=== PATIENT | male | born 1950 | race Caucasian/White ===

== ENCOUNTER 2023-10-05 15:58 | Outpatient (CLI) | payer MEDICARE, SELFPAY ==
[2023-10-05 16:38] LABS: Basophils % 0.8 % (0.1-2.0); Eosinophils # 0.1 K/mm3 (0.0-0.4); Eosinophils % 1.6 % (0.1-12.0); Hematocrit 41.6 % (42.0-52.0); Hemoglobin 13.7 g/dL (14.1-18.0); Lymphocytes # 1.9 K/mm3 (0.7-4.5); Lymphocytes % 36.9 % (10-50); Mean Corpuscular HGB Conc 32.9 g/dL (31.8-35.4); Mean Corpuscular Hemoglobin 30.7 pg (27.0-31.2); Mean Corpuscular Volume 93.4 fl (80-94); Monocytes # 0.5 K/mm3 (0.1-1.0); Monocytes % 9.1 % (1.7-9.3); Neutrophils # 2.7 K/mm3 (1.8-7.8); Neutrophils % 51.6 % (37.0-80.0); Platelet Count 204 K/mm3 (142-424); Red Blood Count 4.46 M/mm3 (4.60-6.20); Red Cell Distribution Width 13.8 % (11.5-17.5); White Blood Count 5.2 K/mm3 (4.8-10.8)
[2023-10-05 17:35] LABS: Alanine Aminotransferase 26 U/L (12-78); Alkaline Phosphatase 56 U/L (38-126); Anion Gap 10.4 mEq/L (5-15); Aspartate Amino Transferase 36 U/L (17-59); Bilirubin,Indirect 0.6 mg/dL (0.0-0.9); Bilirubin,Total 0.6 mg/dl (0.2-1.3); Bilirubin,Unconjugated 0.6 mg/dL (0.0-1.1); Blood Urea Nitrogen 21 mg/dl (9-20); Calcium 9.3 mg/dl (8.4-10.2); Carbon Dioxide 28 mmol/L (22.0-30.0); Chloride 102 mmol/L (98-107); Chol/HDL Ratio 3.3 (1-3.5); Cholesterol 135 mg/dl (140-200); Estimated Glomerular Filt Rate 74 ml/min (>60); GFR (African American) 89 ML/MIN (>60); Glucose 93 mg/dl (74-100); HDL Cholesterol 41 mg/dl (40-60); Magnesium 1.8 mg/dl (1.6-2.3); Potassium 4.4 mmoL/L (3.5-5.1); Sodium 136 mmol/L (136-145); Total Protein,Serum 6.7 g/dl (6.3-8.2); Triglycerides 91 mg/dl (30-150); VLDL Cholesterol 18 mg/dL (0-40)
[2023-10-05 17:48] LABS: Direct LDL Cholesterol 66.21 mg/dL (100-129)
[2023-10-05 17:51] LABS: Free T4 (Free Thyroxine) 1.01 ng/dl (0.78-2.19)
[2023-10-05 18:05] LABS: Thyroid Stimulating Hormone 1.17 uIU/mL (0.465-4.68)
== END 2023-10-05 23:59 | disposition home or self-care (01) ==
PROVIDERS: Internal Medicine; PCP Physician Assistant; Visit Provider Internal Medicine
DX: R00.1 Bradycardia, unspecified (principal); I73.9 Peripheral vascular disease, unspecified; I10 Essential (primary) hypertension; I70.1 Atherosclerosis of renal artery
CPT/HCPCS: 36415; 80048; 80061; 80076; 83735; 84439; 84443; 85025

== ENCOUNTER 2023-11-08 07:45 | Outpatient (CLI) | payer MEDICARE, SELFPAY ==
--- OUTSIDE RECORDS SUMMARY | 2023-11-08 07:47 | XMS_ITS | Continuity of Care Document ---
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 Role Phone Provider, Unlisted Primary Care Physician Kj lazo Encounter [facility] [id number] Date(s): 12/09/22 - 12/09/[address] [id number] Encounter Diagnosis Cough(Discharge Diagnosis) - 12/09/22 Sinusitis(Discharge Diagnosis) - 12/09/22 Elevated blood pressure reading(Discharge Diagnosis) - 12/09/22 Discharge Disposition: Home Attending Physician: SABINE MEDELLIN Admitting Physician: SABINE MEDELLIN Allergies, Adverse Reactions, Alerts No Known Medication Allergies Functional Status 12/09/22 History of Fall in Last 3 Months [place] o Medications Acidophilus Extra Strength oral capsule 1 cap(s), PO, Daily, # 14 cap(s), 0 Refill(s), Pharmacy: [id number], 1 cap(s) PO Daily Start Date: 12/09/22 Status: Ordered doxycycline hyclate 100 mg oral capsule ( 100 mg ), PO, BID, x 7 day(s), Instructions: Take with food, may make you sensitive to the sun, #14 cap(s), 0 Refill(s), 12/16/22 2:25:00 PM CDT, Pharmacy: [id number], 100 mg PO BID,x7 day(s),Instr:Take with food, may make you sensitive to the sun Start Date: 12/09/22 Stop Date: 12/16/22 Status: Ordered losartan 100 mg oral tablet Instructions: TAKE 1 TABLET BY MOUTH EVERY DAY Start Date: 12/09/22 Status: Ordered Tessalon Perles 100 mg oral capsule 2 cap(s) ( 200 mg ), PO, TID, PRN: as needed for cough, # 18 cap(s), 0 Refill(s), 12/10/22 11:00:00PM CDT, Pharmacy: [id number], 2 cap(s) PO TID,PRN:as needed for cough Start Date: 12/09/22 Stop Date: 12/11/22 Status: Ordered Ventolin HFA 90 mcg/inh inhalation aerosol 1 puff(s), INH, q6hr, PRN: for wheezing, # 18 gm, 0 Refill(s), Pharmacy: [id number], 1 puff(s) INH q6hr,PRN:for wheezing Start Date: 12/09/22 Status: Ordered Vital Signs Most recent to oldest [Reference Range]: 1 Height 187.96 cm (12/09/22 3:12 PM) Weight 94.98 kg (12/09/22 3:12 PM) Body Mass Index Measured 26.88 kg/m2 (12/09/22 3:12 PM) BSA Measured 2.23 m2 (12/09/22 3:12 PM) Temperature Tympanic [36.6-38.1 DegC] 36 .6 DegC (12/09/22 3:12 PM) Peripheral Pulse Rate [60-100 bpm] 47 bp m *LOW* (12/09/22 3:12 PM) Respiratory Rate [14-20 br/min] 16 br/mi n (12/09/22 3:12 PM) Blood Pressure [90-140/60-90 mmHg] 154/9 0mmHg *HI* (12/09/22 3:12 PM) SpO2 [92-100 %] 93 % (12/09/22 3:12 PM) Oxygen Therapy Room air (12/09/22 3:12 PM) BP Method Manual (12/09/22 3:12 PM) Social History Social History Type Response Tobacco Never tobacco user T obacco Use:. Sex Hospital Discharge Instructions Patient Education 12/09/2022 14:31:48 Hypertension, Adult Hypertension, Adult High blood pressure (hypertension) is when the force of blood pumping through the arteries is too strong. The arteries are the blood vessels that carry blood from the heart throughout the body. Hypertension forces the heart to work harder to pump blood and may cause arteries to become narrow or stiff. Untreated or uncontrolled hypertension can lead to a heart attack, heart failure, a stroke, kidney disease, and other problems. A blood pressure reading consists of a higher number over a lower number. Ideally, your blood pressure should be below 120/80. The first ( top ) number is called the systolic pressure. It is a measure of the pressure in your arteries as your heart beats. The second ( bottom ) number is called the diastolic pressure. It is a measure of the pressure in your arteries as the heart relaxes. What are the causes? The exact cause of this condition is not known. There are some conditions that result in high bloodpressure. What increases the risk? Certain factors may make you more likely to develop high blood pressure. Some of these risk factorsare under your control, including: ??? Smoking. ??? Not getting enough exercise or physical activity. ??? Being overweight. ??? Having too much fat, sugar, calories, or salt (sodium) in your diet. ??? Drinking too much alcohol. Other risk factors include: ??? Having a personal history of heart disease, diabetes, high cholesterol, or kidney disease. ??? Stress. ??? Having a family history of high blood pressure and high cholesterol. ??? Having obstructive sleep apnea. ??? Age. The risk increases with age. What are the signs or symptoms? High blood pressure may not cause symptoms. Very high blood pressure (hypertensive crisis) may cause: ??? Headache. ??? Fast or irregular heartbeats (palpitations). ??? Shortness of breath. ??? Nosebleed. ??? Nausea and vomiting. ??? Vision changes. ??? Severe chest pain, dizziness, and seizures. How is this diagnosed? This condition is diagnosed by measuring your blood pressure while you are seated, with your arm resting on a flat surface, your legs uncrossed, and your feet flat on the floor. The cuff of the bloodpressure monitor will be placed directly against the skin of your upper arm at the level of your heart. Blood pressure should be measured at least twice using the same arm. Certain conditions can cause a difference in blood pressure between your right and left arms. If you have a high blood pressure reading during one visit or you have normal blood pressure with other risk factors, you may be asked to: ??? Return on a different day to have your blood pressure checked again. ??? Monitor your blood pressure at home for 1 week or longer. If you are diagnosed with hypertension, you may have other blood or imaging tests to help your health care provider understand your overall risk for other conditions. How is this treated? This condition is treated by making healthy lifestyle changes, such as eating healthy foods, exercising more, and reducing your alcohol intake. You may be referred for counseling on a healthy diet and physical activity. Your health care provider may prescribe medicine if lifestyle changes are not enough to get your blood pressure under control and if: ??? Your systolic blood pressure is above 130. ??? Your diastolic blood pressure is above 80. Your personal target blood pressure may vary depending on your medical conditions, your age, and other factors. Follow these instructions at home: Eating and drinking ??? Eat a diet that is high in fiber and potassium, and low in sodium, added sugar, and fat. An example of this eating plan is called the DASH diet. DASH stands for Dietary Approaches to Stop Hypertension. To eat this way: ??? Eat plenty of fresh fruits and vegetables. Try to fill one half of your plate at each meal withfruits and vegetables. ??? Eat whole grains, such as whole-wheat pasta, brown rice, or whole-grain bread. Fill about one fourth of your plate with whole grains. ??? Eat or drink low-fat dairy products, such as skim milk or low-fat yogurt. ??? Avoid fatty cuts of meat, processed or cured meats, and poultry with skin. Fill about one fourth of your plate with lean proteins, such as fish, chicken without skin, beans, eggs, or tofu. ??? Avoid pre-made and processed foods. These tend to be higher in sodium, added sugar, and fat. ??? Reduce your daily sodium intake. Many people with hypertension should eat less than 1,500 mg ofsodium a day. ??? Do not drink alcohol if: ??? Your health care provider tells you not to drink. ??? You are , may be , or are planning to become . ??? If you drink alcohol: ??? Limit how much you have to: ??? 0???1 drink a day for women. ??? 0???2 drinks a day for men. ??? Know how much alcohol is in your drink. In the [place] one drink equals one 12 oz bottle of beer (355 mL), one 5 oz glass of wine (148 mL), or one 1?? oz glass of hard liquor (44 mL). Lifestyle ??? Work with your health care provider to maintain a healthy body weight or to lose weight. Ask what an ideal weight is for you. ??? Get at least 30 minutes of exercise that causes your heart to beat faster (aerobic exercise) most days of the week. Activities may include walking, swimming, or biking. ??? Include exercise to strengthen your muscles (resistance exercise), such as Pilates or lifting weights, as part of your weekly exercise routine. Try to do these types of exercises for 30 minutes at least 3 days a week. ??? Do not use any products that contain nicotine or tobacco. These products include cigarettes, chewing tobacco, and vaping devices, such as e-cigarettes. If you need help quitting, ask your health care provider. ??? Monitor your blood pressure at home as told by your health care provider. ??? Keep all follow-up visits. This is important. Medicines ??? Take hjww-hfc-xysipra and prescription medicines only as told by your health care provider. Follow directions carefully. Blood pressure medicines must be taken as prescribed. ??? Do not skip doses of blood pressure medicine. Doing this puts you at risk for problems and can make the medicine less effective. ??? Ask your health care provider about side effects or reactions to medicines that you should watch for. Contact a health care provider if you: ??? Think you are having a reaction to a medicine you are taking. ??? Have headaches that keep coming back (recurring). ??? Feel dizzy. ??? Have swelling in your ankles. ??? Have trouble with your vision. Get help right away if you: ??? Develop a severe headache or confusion. ??? Have unusual weakness or numbness. ??? Feel faint. ??? Have severe pain in your chest or abdomen. ??? Vomit repeatedly. ??? Have trouble breathing. These symptoms may be an emergency. Get help right away. Call 911. ??? Do not wait to see if the symptoms will go away. ??? Do not drive yourself to the hospital. Summary ??? Hypertension is when the force of blood pumping through your arteries is too strong. If this condition is not controlled, it may put you at risk for serious complications. ??? Your personal target blood pressure may vary depending on your medical conditions, your age, and other factors. For most people, a normal blood pressure is less than 120/80. ??? Hypertension is treated with lifestyle changes, medicines, or a combination of both. Lifestyle changes include losing weight, eating a healthy, low-sodium diet, exercising more, and limiting alcohol. This information is not intended to replace advice given to you by your health care provider. Make sure you discuss any questions you have with your health care provider. Document Revised: 12/23/2021 Document Reviewed: 12/23/2021 [employer] Patient Education ?? 2022 [facility]. 12/09/2022 14:29:46 Cough, Adult Cough, Adult Coughing is a reflex that clears your throat and your airways (respiratory system). Coughing helps to heal and protect your lungs. It is normal to cough occasionally, but a cough that happens with other symptoms or lasts a long time may be a sign of a condition that needs treatment. An acute cough may only last 2???3 weeks, while a chronic cough may last 8 or more weeks. Coughing is commonly caused by: ??? Infection of the respiratory systemby viruses or bacteria. ??? Breathing in substances that irritate your lungs. ??? Allergies. ??? Asthma. ??? Mucus that runs down the back of your throat (postnasal drip). ??? Smoking. ??? Acid backing up from the stomach into the esophagus (gastroesophageal reflux). ??? Certain medicines. ??? Chronic lung problems. ??? Other medical conditions such as heart failure or a blood clot in the lung (pulmonary embolism). Follow these instructions at home: Medicines ??? Take ppgt-bwv-oggsoig and prescription medicines only as told by your health care provider. ??? Talk with your health care provider before you take a cough suppressant medicine. Lifestyle ??? Avoid cigarette smoke. Do not use any products that contain nicotine or tobacco, such as cigarettes, e-cigarettes, and chewing tobacco. If you need help quitting, ask your health care provider. ??? Drink enough fluid to keep your urine pale yellow. ??? Avoid caffeine. ??? Do not drink alcohol if your health care provider tells you not to drink. General instructions ??? Pay close attention to changes in your cough. Tell your health care provider about them. ??? Always cover your mouth when you cough. ??? Avoid things that make you cough, such as perfume, candles, cleaning products, or campfire or tobacco smoke. ??? If the air is dry, use a cool mist vaporizer or humidifier in your bedroom or your home to helploosen secretions. ??? If your cough is worse at night, try to sleep in a semi-upright position. ??? Rest as needed. ??? Keep all follow-up visits as told by your health care provider. This is important. Contact a health care provider if you: ??? Have new symptoms. ??? Cough up pus. ??? Have a cough that does not get better after 2???3 weeks or gets worse. ??? Cannot control your cough with cough suppressant medicines and you are losing sleep. ??? Have pain that gets worse or pain that is not helped with medicine. ??? Have a fever. ??? Have unexplained weight loss. ??? Have night sweats. Get help right away if: ??? You cough up blood. ??? You have difficulty breathing. ??? Your heartbeat is very fast. These symptoms may represent a serious problem that is an emergency. Do not wait to see if the symptoms will go away. Get medical help right away. Call your local emergency services (911 in the [place] Do not drive yourself to the hospital. Summary ??? Coughing is a reflex that clears your throat and your airways. It is normal to cough occasionally, but a cough that happens with other symptoms or lasts a long time may be a sign of a condition that needs treatment. ??? Take lapn-jnz-fuotlzy and prescription medicines only as told by your health care provider. ??? Always cover your mouth when you cough. ??? Contact a health care provider if you have new symptoms or a cough that does not get better after 2???3 weeks or gets worse. This information is not intended to replace advice given to you by your health care provider. Make sure you discuss any questions you have with your health care provider. Document Revised: 03/06/2019 Document Reviewed: 03/06/2019 [employer] Patient Education ?? 202 [facility] [facility]. 12/09/2022 14:29:46 How to Use a Metered Dose Inhaler How to Use a Metered Dose Inhaler A metered dose inhaler (MDI) is a handheld device filled with medicine that must be breathed into the lungs (inhaled). The medicine is delivered by pushing down on a metal canister. This releases a preset amount of spray and mist through the mouth and into the lungs. Each MDI canister holds a certain number of doses (puffs). Using a spacer with a metered dose inhaler may be recommended to help get more medicine into the lungs. A spacer is a plastic tube that connects to the MDI on one end and has a mouthpiece on the other end. A spacer holds the medicine in the tube for a short time. This allows more medicine to be inhaled. The MDI can be used to deliver many kinds of inhaled medicines, including: ??? Quick relief or rescue medicines, such as bronchodilators. ??? Controller medicines, such as corticosteroids. What are the risks? If you do not use your inhaler correctly, medicine might not reach your lungs to help you breathe. ??? If you do not have enough strength to push down the canister to make it spray, ask your health care provider for ways to help. ??? The medicine in the MDI may cause side effects, such as: ??? Mouth sores (thrush). ??? Cough. ??? Hoarseness. ??? Shakiness. ??? Headache. Supplies needed: ??? A metered dose inhaler. ??? A spacer, if recommended. How to use a metered dose inhaler without a spacer 1. Remove the cap from the inhaler. 2. If you are using the inhaler for the first time, shake it for 5 seconds, turn it away from your face, then release 4 puffs into the air. This is called priming. 3. Shake the inhaler for 5 seconds. 4. Position the inhaler so the top of the canister faces up. 5. Put your index finger on the top of the medicine canister. Support the bottom of the inhaler with your thumb. 6. Breathe out normally and as completely as possible, away from the inhaler. 7. Either place the inhaler between your teeth and close your lips tightly around the mouthpiece, or hold the inhaler 1???2 inches (2.5???5 cm) away from your open mouth. Keep your tongue down out ofthe way. If you are unsure which technique to use, ask your health care provider. 8. Press the canister down with your index finger to release the medicine. Inhale deeply and slowlythrough your mouth until your lungs are completely filled. Do not breathe in through your nose. Inhaling should take 4???6 seconds. 9. Hold the medicine in your lungs for 5???10 seconds (10 seconds is best). This helps the medicineget into the small airways of your lungs. 10. Remove the inhaler from your mouth, turn your head, and breathe out normally. 11. Wait about 1 minute between puffs or as directed. Then repeat steps 3???10 until you have takenthe number of puffs that your health care provider directed. 12. Put the cap on the inhaler. 13. If you are using a steroid inhaler, rinse your mouth with water, gargle, and spit out the water. Do not swallow the water. How to use a metered dose inhaler with a spacer 1. Remove the cap from the inhaler. 2. If you are using the inhaler for the first time, shake it for 5 seconds, turn it away from your face, then release 4 puffs into the air. This is called priming. 3. Shake the inhaler for [address] the open end of the spacer onto the inhaler mouthpiece. 5. Position the inhaler so the top of the canister faces up and the spacer mouthpiece faces you. 6. Put your index finger on the top of the medicine canister. Support the bottom of the inhaler andthe spacer with your thumb. 7. Breathe out normally and as completely as possible, away from the spacer. 8. Place the spacer between your teeth and close your lips tightly around it. Keep your tongue downout of the way. 9. Press the canister down with your index finger to release the medicine, then inhale deeply and slowly through your mouth until your lungs are completely filled. Do not breathe in through your nose. Inhaling should take 4???6 seconds. 10. Hold the medicine in your lungs for 5???10 seconds (10 seconds is best). This helps the medicine get into the small airways of your lungs. 11. Remove the spacer from your mouth, turn your head, and breathe out normally. 12. Wait about 1 minute between puffs or as directed. Then repeat steps 3???11 until you have takenthe number of puffs that your health care provider directed. 13. Remove the spacer from the inhaler and put the cap on the inhaler. 14. If you are using a steroid inhaler, rinse your mouth with water, gargle, and spit out the water. Do not swallow the water. Follow these instructions at home: Caring for your MDI ??? Store your inhaler at or near room temperature. A cold MDI will not work properly. ??? Follow directions on the package insert for care and cleaning of your MDI and spacer. General instructions ??? Take your inhaled medicine only as told by your health care provider. Do not use the inhaler more than directed by your health care provider. ??? Refill your MDI with medicine before all the preset doses have been used. ??? If your inhaler has a counter, check it to determine how full your MDI is. The number you see tells you how many doses are left. ??? If your inhaler does not have a counter, ask your health care provider when you will need to refill it. Then write the refill date on a calendar or on your MDI canister. ??? Keep in mind that you cannot tell when the medicine in an inhaler is empty by shaking it. You may feel or hear something in the canister even when the preset medicine doses have been used up. Keeping track of your dosages is important. ??? Do not use any products that contain nicotine or tobacco, such as cigarettes, e-cigarettes, andchewing tobacco. If you need help quitting, ask your health care provider. ??? Keep all follow-up visits as told by your health care provider. This is important. Where to find more information ??? Centers for Disease Control and Prevention: www.cdc.gov ??? [place] [employer]: www.lung.org Contact a health care provider if: ??? Symptoms are only partially relieved with your inhaler. ??? You are having trouble using your inhaler. ??? You have side effects from the medicine. ??? You have chills or a fever. ??? You have night sweats. ??? There is blood in your thick saliva (phlegm). Get help right away if: ??? You have dizziness. ??? You have a fast heart rate. ??? You have severe shortness of breath. ??? You have difficulty breathing. These symptoms may represent a serious problem that is an emergency. Do not wait to see if the symptoms will go away. Get medical help right away. Call your local emergency services (911 in the [place] Do not drive yourself to the hospital. Summary ??? A metered dose inhaler is a handheld device for taking medicine that must be breathed into the lungs (inhaled). ??? Take your inhaled medicine only as told by your health care provider. Do not use the inhaler more than directed by your health care provider. ??? You cannot tell when the medicine is gone in an inhaler by shaking it. Refill it with medicine before all the preset doses have been used. ??? Follow directions on the package insert for care and cleaning of your MDI and spacer. This information is not intended to replace advice given to you by your health care provider. Make sure you discuss any questions you have with your health care provider. Document Revised: 04/02/2020 Document Reviewed: 04/02/2020 [employer] Patient Education ?? 2022 [employer] [facility]. 12/09/2022 14:29:46 Upper Respiratory Infection, Adult Upper Respiratory Infection, Adult An upper respiratory infection (URI) is a common viral infection of the nose, throat, and upper airpassages that lead to the lungs. The most common type of URI is the common cold. URIs usually get better on their own, without medical treatment. What are the causes? A URI is caused by a virus. You may catch a virus by: ??? Breathing in droplets from an infected person's cough or sneeze. ??? Touching something that has been exposed to the virus (is contaminated) and then touching your mouth, nose, or eyes. What increases the risk? You are more likely to get a URI if: ??? You are very young or very old. ??? You have close contact with others, such as at work, school, or a health care facility. ??? You smoke. ??? You have long-term (chronic) heart or lung disease. ??? You have a weakened disease-fighting system (immune system). ??? You have nasal allergies or asthma. ??? You are experiencing a lot of stress. ??? You have poor nutrition. What are the signs or symptoms? A URI usually involves some of the following symptoms: ??? Runny or stuffy (congested) nose. ??? Cough. ??? Sneezing. ??? Sore throat. ??? Headache. ??? Fatigue. ??? Fever. ??? Loss of appetite. ??? Pain in your forehead, behind your eyes, and over your cheekbones (sinus pain). ??? Muscle aches. ??? Redness or irritation of the eyes. ??? Pressure in the ears or face. How is this diagnosed? This condition may be diagnosed based on your medical history and symptoms, and a physical exam. Your health care provider may use a swab to take a mucus sample from your nose (nasal swab). This sample can be tested to determine what virus is causing the illness. How is this treated? URIs usually get better on their own within 7???10 days. Medicines cannot cure URIs, but your health care provider may recommend certain medicines to help relieve symptoms, such as: ??? Folz-xru-dudktpv cold medicines. ??? Cough suppressants. Coughing is a type of defense against infection that helps to clear the respiratory system, so take these medicines only as recommended by your health care provider. ??? Fever-reducing medicines. Follow these instructions at home: Activity ??? Rest as needed. ??? If you have a fever, stay home from work or school until your fever is gone or until your health care provider says your URI cannot spread to other people (is no longer contagious). Your health care provider may have you wear a face mask to prevent your infection from spreading. Relieving symptoms ??? Gargle with a mixture of salt and water 3???4 times a day or as needed. To make salt water, completely dissolve ?1 tsp (3???6 g) of salt in 1 cup (237 mL) of warm water. ??? Use a cool-mist humidifier to add moisture to the air. This can help you breathe more easily. Eating and drinking ??? Drink enough fluid to keep your urine pale yellow. ??? Eat soups and other clear broths. General instructions ??? Take mopc-dus-wojzpaa and prescription medicines only as told by your health care provider. These include cold medicines, fever reducers, and cough suppressants. ??? Do not use any products that contain nicotine or tobacco. These products include cigarettes, chewing tobacco, and vaping devices, such as e-cigarettes. If you need help quitting, ask your health care provider. ??? Stay away from secondhand smoke. ??? Stay up to date on all immunizations, including the yearly (annual) flu vaccine. ??? Keep all follow-up visits. This is important. How to prevent the spread of infection to others URIs can be contagious. To prevent the infection from spreading: ??? Wash your hands with soap and water for at least 20 seconds. If soap and water are not available, use hand performance architect. ??? Avoid touching your mouth, face, eyes, or nose. ??? Cough or sneeze into a tissue or your sleeve or elbow instead of into your hand or into the air. Contact a health care provider if: ??? You are getting worse instead of better. ??? You have a fever or chills. ??? Your mucus is brown or red. ??? You have yellow or brown discharge coming from your nose. ??? You have pain in your face, especially when you bend forward. ??? You have swollen neck glands. ??? You have pain while swallowing. ??? You have white areas in the back of your throat. Get help right away if: ??? You have shortness of breath that gets worse. ??? You have severe or persistent: ??? Headache. ??? Ear pain. ??? Sinus pain. ??? Chest pain. ??? You have chronic lung disease along with any of the following: ??? Making high-pitched whistling sounds when you breathe, most often when you breathe out (wheezing). ??? Prolonged cough (more than 14 days). ??? Coughing up blood. ??? A change in your usual mucus. ??? You have a stiff neck. ??? You have changes in your: ??? Vision. ??? Hearing. ??? Thinking. ??? Mood. These symptoms may be an emergency. Get help right away. Call 911. ??? Do not wait to see if the symptoms will go away. ??? Do not drive yourself to the hospital. Summary ??? An upper respiratory infection (URI) is a common infection of the nose, throat, and upper air passages that lead to the lungs. ??? A URI is caused by a virus. ??? URIs usually get better on their own within 7???10 days. ??? Medicines cannot cure URIs, but your health care provider may recommend certain medicines to help relieve symptoms. This information is not intended to replace advice given to you by your health care provider. Make sure you discuss any questions you have with your health care provider. Document Revised: 09/17/2021 Document Reviewed: 09/17/2021 [employer] Patient Education ?? 2022 [facility]. Follow Up Care 12/09/2022 14:57:41 With:Your primary provider in your hometown Address:Unknown When:3 to 5 days Comments:Follow-up primary care provider next few days for reevaluation. Continue with antibiotic and probiotic as discussed. Use inhaler as needed for any chest congestion or wheezing, continue with supportive care at home as discussed. Return for any worsening issues go directly to the emergency department for any crushing chest pains, shortness of breath, high spiking fevers, or any other problems. Note * SABINE MEDELLIN: MODIFY, MODIFY, PERFORM, MODIFY, SIGN, VERIFY Event Display: Urgent Care Note- Provider Authored Date: [id number] Patient: FRANCIS SKAGGS Age: 72 years Sex: MALE : 1950 Associated Diagnoses: Cough; Sinusitis; Elevated blood pressure reading Author: SABINE MEDELLIN Subjective Patient is a 72-year-old male presenting to urgent care with complaint of sinus pressure congestion, postnasal drip and cough for the last 10 days. Patient indicates that he has continued to cough clear greenish type mucus. Also states he feels postnasal drip along with sinus pressure and congestion. Indicates his has had similar symptoms, was treated with antibiotic along with Tessalon Perles is now starting to improve. Patient denies any high spiking fevers, tractable vomiting, abdominalpains, problems with bowels or bladder. Health Status Allergies: Allergic Reactions (Selected) No Known Medication Allergies Objective CONST: -Well-developed well-nourished. -Acute distress: No -Vitals: reviewed. SKIN: -Gross abnormalities: No EYES: -EOM intact, SANJIV: -Sclera conjunctiva: Unremarkable. ENT: -Pharynx pink and moist uvula midline NECK: -Supple (cvgr-en-gleik): non-tender. CARD: -Rate and rhythm: Regular -Edema: No -Calf pain: No RESP: -Respiratory effort and chest excursion with respirations: Normal -Breath sounds equal bilaterally: Clear -Wheezes: No -Rales: No -Active cough NEURO: -Patient: alert -Gross CN or Focal Neuro deficits: No -Oriented to: person, place and time. -Appearance and judgment: appropriate. Impression and Plan Assessment and Plan: Diagnosis: Cough (DYI02-EA R05.9), Elevated blood pressure reading (PJL40-TP R03.0), Sinusitis (ROQ95-WU J32.9). Orders Orders Pharmacy: Tessalon Perles 100 mg oral capsule (Prescribe): 200 mg = 2 cap(s), PO, TID, PRN: as needed for cough, 18 cap(s), 0 Refill(s) Acidophilus Extra Strength oral capsule (Prescribe): 1 cap(s), PO, Daily, 14 cap(s), 0 Refill(s) Ventolin HFA 90 mcg/inh inhalation aerosol (Prescribe): 1 puff(s), INH, q6hr, PRN: for wheezing, 18gm, 0 Refill(s) doxycycline hyclate 100 mg oral capsule (Prescribe): 100 mg, PO, BID, for 7 day(s), Take with food,may make you sensitive to the sun, 14 cap(s), 0 Refill(s) Durable Medical Equipment: DME Inhaler Spacer (Prescribe): 12/09/2022 15:25 EDT, Print Requisition, [email or web address]. . 72-year-old male presenting to urgent care with complaint of sinus pressure congestion, postnasal drip and cough over the last 10 days. I discussed this with him along with his symptoms, offered chest x-ray, he declined indicated not feel this is necessary. Indicated that I would treat him with Tessalon Perles, inhaler, doxycycline and probiotic. Told to follow-up with primary care provider return for any worsening issues go directly to the emergency department. Patient indicated he understood was in agreement. Patient stable be discharged [Electronically Signed on: 12/09/2022 15:38 EDT] SABINE MEDELLIN [Verified on: 12/09/2022 15:38 EDT] SABINE MEDELLIN Patient Care team information Care Team Personnel Name: Provider, Unlisted Position: [facility] No Access Member Role: Primary Care Physician Name: SABINE MEDELLIN Position: [facility] ED Mid Level LP Member Role: Attending Physician Address: Address: [address] [place] [address] Name: Myrna Alarcon RN Position: [facility] RN Member Role: Chart Review Care Team Related Persons Name: CORBIN SKAGGS
--- OUTSIDE RECORDS SUMMARY | 2023-11-08 07:48 | XMS_ITS | Continuity of Care Document ---
Author Organization [employer] Address [address] [place] [id number] Phone [phone] Care Team Providers Care Home Child Care Provider Name Role Phone Rafita Watson M.D. Care Team Information Rec eiver ALEJANDRINA Anthony M.D. Care Team Information Rece iver Unavailable Rafita Watson M.D. Primary Care Physician Un available Problems Active Problems Provider Date Increased frequency of urination Alejandrina Palma M.D., F.A.C.S Onset: 02/15/2013 Allergies and adverse reactions Description No Known Drug Allergies Medications Active Medications SIG Qnty Indications Ordering Provider Date [id number] Capsules 1 by mouth every day virgilio Galeas NP 09/13/2012
--- NOTE | 2023-11-08 07:50 | CT_ITS ---
FINAL REPORT TECHNIQUE: Pre-and postcontrast images of the abdomen and pelvis were performed by computed tomography. Extensive 3-D reconstruction images were performed. A CTA was performed. This study was performed with techniques to keep radiation doses as low as reasonably achievable (ALARA). Individualized dose reduction techniques using automated exposure control or adjustment of mA and/or kV according to the patient's size were employed. CLINICAL HISTORY: renal artery stenosis. COMPARISON: None FINDINGS: ABDOMEN AND PELVIS: Mild atelectasis is present in the lung bases. The gallbladder has been surgically resected. Precontrast images demonstrate no evidence of nephrolithiasis. There is a 7 mm low-attenuation focus in the lower pole of the left kidney peripherally, favor a small cyst. The appendix is normal in appearance. No adrenal masses are identified. The liver, spleen and pancreas are unremarkable. There is a 3.9 x 3.4 cm mass in the right lower pelvis, that appears hypervascular with an enlarged feeding vessel and draining veins. This mass is in the region of the right lateral rectal wall or the right side of the seminal vesicle. CTA: The abdominal aorta is proper caliber. There is moderate to severe stenosis at the origin of the celiac axis, of approximately 70% luminal diameter, with poststenotic dilatation. There is moderate 60% stenosis of the origin of the superior mesenteric artery. The BREANNA is patent. There are 2 right renal arteries present, without evidence of stenosis. A single left renal artery is present, also without evidence of stenosis. The iliac arteries are unremarkable in appearance. 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 2 right renal arteries are present, with a single left renal artery, without evidence of stenosis. There is a 3.9 x 3.4 cm mass in the right lower pelvis, that appears hypervascular with enlarged feeding vessel and draining veins. This may represent a hypervascular mass versus an unusual vascular malformation, favor rectal wall origin over seminal vesicle. Reviewed, Interpreted and Dictated by Kenton Pablo III, MD Transcribed by Linda Syed Authenticated and [facility]
[2023-11-08 08:12] LABS: Blood Urea Nitrogen 11 mg/dl (9-20); Estimated Glomerular Filt Rate 83 ml/min (>60); GFR (African American) 101 ML/MIN (>60)
[2023-11-08] MEDS: IOPAMIDOL-370 (76%);100ML BOTTLE 100 ML IV (08:37)
[2023-11-08] MEDS: 0.9 % SODIUM CHLORIDE 50 ML VIAL IV (08:37)
[2023-11-08] MEDS: SODIUM CHLORIDE 0.9% 10ML SYR (RAD ONLY) 10 ML IV (08:37)
== END 2023-11-08 23:59 | disposition home or self-care (01) ==
LOC: RAD 07:46
PROVIDERS: PCP Physician Assistant; Visit Provider Internal Medicine
DX: I70.1 Atherosclerosis of renal artery (principal); I10 Essential (primary) hypertension; R00.1 Bradycardia, unspecified; I73.9 Peripheral vascular disease, unspecified
CPT/HCPCS: 36415; 74174; 82565; 84520; Q9967

== ENCOUNTER → 2024-02-29 09:38 | Outpatient (CLI) | payer MEDICARE, SELFPAY | LOC: SL 09:39 | PROVIDERS: PCP Physician Assistant; Visit Provider Physician Assistant | DX: G47.33 Obstructive sleep apnea (adult) (pediatric) (principal) | CPT/HCPCS: G0399 ==

== ENCOUNTER 2024-11-20 15:50 | Outpatient (CLI) | payer MEDICARE, SELFPAY ==
[2024-11-20 16:15] LABS: Hematocrit 37.9 % (42.0-52.0); Hemoglobin 13.1 g/dL (14.1-18.0); Immature Granulocytes % 0.4 %; Mean Corpuscular HGB Conc 34.6 g/dL (31.8-35.4); Mean Corpuscular Hemoglobin 30.3 pg (27.0-31.2); Mean Corpuscular Volume 87.7 fl (80-94); Nucleated Red Blood Cells % 0 %; Platelet Count 223 K/mm3 (142-424); Red Blood Count 4.32 M/mm3 (4.60-6.20); Red Cell Distribution Width-SD 41.3 fL; White Blood Count 4.6 K/mm3 (4.8-10.8)
[2024-11-20 16:48] LABS: Albumin Level 4.4 g/dl (3.5-5.0); Chloride 98 mmol/L (98-107); Potassium 4.6 mmoL/L (3.5-5.1); Sodium 133 mmol/L (136-145)
[2024-11-20 16:50] LABS: Blood Urea Nitrogen 14 mg/dl (9-20); Creatinine,Serum 0.90 mg/dl (0.66-1.25); Estimated Glomerular Filt Rate 83 ml/min (>60); GFR (African American) 100 ML/MIN (>60)
[2024-11-20 16:51] LABS: Alanine Aminotransferase 20 U/L (12-78); Alkaline Phosphatase 60 U/L (38-126); Anion Gap 10.6 mEq/L (5-15); Aspartate Amino Transferase 33 U/L (17-59); Bilirubin,Direct 0.1 mg/dl (0.0-0.4); Bilirubin,Indirect 0.6 mg/dL (0.0-0.9); Bilirubin,Total 0.7 mg/dl (0.2-1.3); Bilirubin,Unconjugated 0.6 mg/dL (0.0-1.1); Calcium 9.1 mg/dl (8.4-10.2); Carbon Dioxide 29 mmol/L (22.0-30.0); Cholesterol 145 mg/dl (140-200); Glucose 104 mg/dl (74-100); Magnesium 1.8 mg/dl (1.6-2.3); Total Protein,Serum 6.8 g/dl (6.3-8.2); Triglycerides 65 mg/dl (30-150)
[2024-11-20 16:52] LABS: HDL Cholesterol 49 mg/dl (40-60)
[2024-11-20 17:21] LABS: Thyroid Stimulating Hormone 1.29 uIU/mL (0.465-4.68)
[2024-11-20 17:25] LABS: Free T4 (Free Thyroxine) 1.03 ng/dl (0.78-2.19)
[2024-11-20 19:18] LABS: Hemoglobin A1C 6.0 % (4.0-6.0)
== END 2024-11-20 23:59 | disposition home or self-care (01) ==
LOC: LAB 15:51
PROVIDERS: PCP Physician Assistant; Visit Provider Internal Medicine
DX: I73.9 Peripheral vascular disease, unspecified (principal); R00.1 Bradycardia, unspecified; I10 Essential (primary) hypertension; I70.1 Atherosclerosis of renal artery; Z13.1 Encounter for screening for diabetes mellitus
CPT/HCPCS: 36415; 80048; 80061; 80076; 83036; 83735; 84439; 84443; 85025